=== PATIENT | male | born 1965 | race Caucasian/White ===

== ENCOUNTER 2016-11-17 13:31 | Emergency (ER) | payer MEDICARE, MEDICAID ==
[2016-11-17 14:00] VITALS: BP 128/85
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
== END 2016-11-17 15:00 | disposition home or self-care (01) ==
LOC: FB.ED 13:31
DX: M25.511 Pain in right shoulder (principal); G89.29 Other chronic pain; I10 Essential (primary) hypertension; M10.9 Gout, unspecified; F17.210 Nicotine dependence, cigarettes, uncomplicated
CPT/HCPCS: 73030-RT; 99282; 99283

== ENCOUNTER 2018-10-24 09:50 | Emergency (ER) | payer MEDICARE, MEDICAID ==
[2018-10-24] MEDS ORDERED: Ketamine 500 mg/10 ML MDV IV ONE (10:04)
[2018-10-24] MEDS ORDERED: Sodium Chloride 0.9% 1,000 ML IV ONE ×2 (10:06→11:10)
--- NOTE | 2018-10-24 10:18 | EDM.PDOC ---
ED HPI GENERAL MEDICAL PROBLEM - General Chief Complaint: Possible Sepsis Stated Complaint: SHAKING, PARINOID, Time Seen by Provider: 10/24/18 09:54 Source of Information: Reports: EMS (Is delirious unable understand speech and words are barely perceptible), Other History Limitations: Reports: No Limitations - History of Present Illness INITIAL COMMENTS - FREE TEXT/NARRATIVE: Patient is confused and disoriented 2 body feels warm has difficulty allowing us to put IV in place pushes us away and only oriented to self. He has slurred speech. Unshaven has bronzing of his body marked dry mucosa oral mucosa. He has known cirrhosis liver cancer and hepatitis C and hepatitis B chronic kidney disease hypertension chronic low back pain gout coronary artery disease COPD - Related Data Allergies Allergy/AdvReac Type Severity Reaction Status Date / Time No Known Allergies Allergy Verified 10/24/18 10:03 Home Meds: Home Meds Albuterol [Ventolin HFA] 2 puff PO Q6H PRN 10/28/14 [History] Allopurinol 150 mg PO DAILY 10/28/14 [History] Amitriptyline HCl 50 mg PO BEDTIME 10/28/14 [History] Tiotropium [Spiriva Handihaler] 1 puff INH DAILY 10/28/14 [History] B&C/FA/Zinc/Copper Oxide/Vit E [Stress B-Complex Tablet] 1 each PO 1700 [History] Magnesium Oxide [Magnesium] 400 mg PO BID 06/19/18 [History] Morphine Sulfate [Morphine Sulfate ER] 15 mg PO BID 06/19/18 [History] Multivitamin-Min/Iron/FA/Vit K [Multi-Day Plus Minerals Tablet] 1 each PO DAILY 06/19/18 [History] Theophylline [Theophylline Anhydrous] 300 mg PO DAILY 06/19/18 [History] oxyCODONE 5 mg PO Q4H PRN 06/19/18 [History] oxyCODONE 10 mg PO Q4H PRN 06/19/18 [History] Beclomethasone Dipropionate [Qvar] 7.3 gm IH BID #0 aer.w.adap 07/01/18 [Rx] Midodrine 5 mg PO DAILY PRN #30 tablet 07/01/18 [Rx] PARoxetine [Paxil] 30 mg PO DAILY #0 07/01/18 [Rx] Potassium Chloride [Klor-Con M20] 20 meq PO DAILY #30 tab.er 07/01/18 [Rx] Zolpidem Tartrate [Ambien] 10 mg PO BEDTIME PRN #0 tablet 07/01/18 [Rx] Past Medical History HEENT History: Reports: None Cardiovascular History: Reports: Hypertension Respiratory History: Reports: COPD Gastrointestinal History: Reports: Cirrhosis, Hepatitis, Other (See Below) Other Gastrointestinal History: liver ca Musculoskeletal History: Reports: Back Pain, Chronic, Gout Oncologic (Cancer) History: Reports: Liver - Infectious Disease History Infectious Disease History: Reports: C-Difficile, Hepatitis C - Past Surgical History HEENT Surgical History: Reports: Oral Surgery Other HEENT Surgeries/Procedures: lower partial in front GI Surgical History: Reports: Small Bowel Social & Family History - Family History Family Medical History: Noncontributory - Caffeine Use Caffeine Use: Reports: Coffee, Soda - Living Situation & Occupation Living situation: Reports: Single ED ROS GENERAL - Review of Systems Review Of Systems: Unable To Obtain ED EXAM, SEPSIS - Physical Exam Exam: See Below Text/Narrative:: Confused patient with slurred speech. Point to 1. Pushing staff way when they tried to place IVs. And [place]. Warm body to touch. No scleral icterus. Large abdomen. He doesn't complain of pain. Exam Limited By: Altered Mental Status General Appearance: Moderate Distress Eye Exam: Bilateral Eye: Normal Inspection (No scleral icterus) Ears: Normal External Exam, Normal Canal, Hearing Grossly Normal, Normal TMs Nose: Normal Inspection Throat/Mouth: Other (dry oropharynx. Poor dentition) Head: Atraumatic, Other (No hill sign) Neck: Normal Inspection, Supple, Non-Tender, Full Range of Motion, Other (No bruits no masses) Respiratory/Chest: No Respiratory Distress, No Accessory Muscle Use, Rales Cardiovascular: Normal Peripheral Pulses, Regular Rate, Rhythm, No Edema, No Gallop, No JVD, No Murmur, No Rub Peripheral Pulses: 1+: Carotid (L), Carotid (R), Brachial (L), Brachial (R), Radial (L), Radial (R), Femoral (L), Femoral (R) GI/Abdominal Exam: Normal Bowel Sounds, Soft, Non-Tender, No Organomegaly, No Abnormal Bruit, Other (Mildly distended abdomen has midline scar [place] to symphysis old healed nontender no hernia demonstrated bowel sounds are present. No masses palpable) (Male) Exam: No Hernia Rectal (Males) Exam: Normal Exam, Normal Rectal Tone, Prostate Normal Back: Normal Inspection, Other (No CVA tenderness) Extremities: Normal Inspection, No Pedal Edema, Normal Capillary Refill, Other ( [place] fingernails) Neurological: Memory Loss Remote Events, Memory Loss Recent Events, Other ( Slurred speech absent deep tendon reflexes) Psychiatric: Other (Delirious A cooperative) Skin: Warm, Dry, Intact, Normal Color, No Rash EKG INTERPRETATION EKG Date: 10/24/18 Course - Orders/Labs/Meds Orders: Active Orders 24 hr Category Date Time Status CXR [Chest 1V Frontal] [CR] Stat Exams 10/24/18 10:07 Taken CULTURE BLOOD [BC] Urgent Lab 10/24/18 10:25 Received CULTURE BLOOD [] Urgent Lab 10/24/18 10:35 Received CULTURE URINE [] Urgent Lab 10/24/18 10:35 Received INFLUENZA A+B AG SCREEN [] Stat Lab 10/24/18 10:37 Received STREP SCRN A RAPID W CULT CONF [] Urgent Lab 10/24/18 10:28 Received Ketamine [Ketalar] Med 10/24/18 10:35 Active 60 mg IV ONETIME NS + KCl 20mEq/L [Normal Saline with 20 mEq KCl] 1,000 Med 10/24/18 11:15 Active ml IV ASDIRECTED Piperacillin/Tazobactam [Zosyn] 4.5 gm Med 10/24/18 11:15 Active Sodium Chloride 0.9% [Normal Saline] 100 ml IV Q6H Sodium Chloride 0.9% [Normal Saline] 1,000 ml Med 10/24/18 11:10 Active IV .BOLUS Vancomycin 1 gm Med 10/24/18 12:00 Active Sodium Chloride 0.9% [Normal Saline] 250 ml IV Q12H Blood Culture x2 Reflex Set [OM.PC] Urgent Oth 10/24/18 10:12 Ordered EKG 12 Lead [EK] Routine Ther 10/24/18 10:08 Ordered Medication Orders Potassium Chloride/Sodium Chloride (Normal Saline With 20 Meq Kcl) 1,000 mls @ 500 mls/hr IV ASDIRECTED SHANTI Last Admin: 10/24/18 11:23 Dose: 500 mls/hr Sodium Chloride (Normal Saline) 1,000 mls @ 999 mls/hr IV .BOLUS ONE Stop: 10/24/18 12:10 Piperacillin Sod/Tazobactam (Sod 4.5 gm/ Sodium Chloride) 100 mls @ 200 mls/hr IV Q6H SHANTI Vancomycin HCl 1 gm/ Sodium (Chloride) 250 mls @ 167 mls/hr IV Q12H SHANTI Ketamine HCl (Ketalar) 60 mg IV ONETIME SHANTI Last Admin: 10/24/18 10:39 Dose: 60 mg Labs: Laboratory Tests 10/24/18 10/24/18 10/24/18 Range/Units 10:25 10:25 10:25 WBC 7.9 (4.5-12.0) X10-3/uL RBC 3.25 L (4.30-5.75) x10(6)uL Hgb 11.4 L (11.5-15.5) g/dL Hct 33.8 (30.0-51.3) % MCV 104.0 H (80-96) fL MCH 35.2 H (27.7-33.6) pg MCHC 33.8 (32.2-35.4) g/dL RDW 16.7 H (11.5-15.5) % Plt Count 175 (125-369) X10(3)uL MPV 8.9 (7.4-10.4) fL Neut % (Auto) 75.9 (46-82) % Lymph % (Auto) 14.3 (13-37) % Wilkin % (Auto) 7.2 (4-12) % Eos % (Auto) 2 (1.0-5.0) % Baso % (Auto) 0 (0-2) % Neut # (Auto) 6.0 (1.6-8.3) # Lymph # (Auto) 1.1 (0.6-5.0) # Wilkin # (Auto) 0.6 (0.0-1.3) # Eos # (Auto) 0.2 (0.0-0.8) # Baso # (Auto) 0.0 (0.0-0.2) # PT (8.7-11.1) INR (0.89-1.13) Sodium (135-145) mmol/L Potassium (3.5-5.3) mmol/L Chloride (100-110) mmol/L Carbon Dioxide (21-32) mmol/L BUN (7-18) mg/dL Creatinine (0.70-1.30) mg/dL Est Cr Clr Drug Dosing Estimated GFR (MDRD) (>60) BUN/Creatinine Ratio (9-20) Glucose (80-116) mg/dL POC Glucose (80-116) mg/dL Lactic Acid (0.4-2.2) mmol/L Calcium (8.6-10.2) mg/dL Total Bilirubin (0.1-1.3) mg/dL AST (5-25) IU/L ALT (12-36) U/L Alkaline Phosphatase (56-112) IU/L Troponin I 0.027 (<0.017-0.056) ng/mL NT-Pro-B Natriuret Pep 386 H (<=125) pg/mL Total Protein (6.0-8.0) g/dL Albumin (3.5-5.2) g/dL Globulin g/dL Albumin/Globulin Ratio Amylase (25-115) U/L Urine Color (YELLOW) Urine Appearance (CLEAR) Urine pH (5.0-6.5) Ur Specific [place] (1.010-1.025) Urine Protein (NEGATIVE) mg/dL Urine Glucose (UA) (NEGATIVE) mg/dL Urine Ketones (NEGATIVE) mg/dL Urine Occult Blood (NEGATIVE) Urine Nitrite (NEGATIVE) Urine Bilirubin (NEGATIVE) Urine Urobilinogen (NEGATIVE) mg/dL Ur Leukocyte Esterase (NEGATIVE) Urine RBC (0) Urine WBC (0) Ur Squamous Epith Cells (NS,R,O) Urine Bacteria (NS) Salicylates (2.8-20.0) mg/dL Urine Opiates Screen (NEGATIVE) Ur Oxycodone Screen (NEGATIVE) Ur Propoxyphene Screen (NEGATIVE) Acetaminophen (10-30) ug/mL Ur Barbituates Screen (NEGATIVE) Ur Tricyclics Screen (NEGATIVE) Ur Phencyclidine Scrn (NEGATIVE) Ur Amphetamine Screen (NEGATIVE) Urine MDMA Screen (NEGATIVE) U Benzodiazepines Scrn (NEGATIVE) U Cocaine Metab Screen (NEGATIVE) U Marijuana (THC) Screen (NEGATIVE) Ethyl Alcohol < 0.03 (<0.03) % 10/24/18 10/24/18 10/24/18 Range/Units 10:25 10:25 10:25 WBC (4.5-12.0) X10-3/uL RBC (4.30-5.75) x10(6)uL Hgb (11.5-15.5) g/dL Hct (30.0-51.3) % MCV (80-96) fL MCH (27.7-33.6) pg MCHC (32.2-35.4) g/dL RDW (11.5-15.5) % Plt Count (125-369) X10(3)uL MPV (7.4-10.4) fL Neut % (Auto) (46-82) % Lymph % (Auto) (13-37) % Wilkin % (Auto) (4-12) % Eos % (Auto) (1.0-5.0) % Baso % (Auto) (0-2) % Neut # (Auto) (1.6-8.3) # Lymph # (Auto) (0.6-5.0) # Wilkin # (Auto) (0.0-1.3) # Eos # (Auto) (0.0-0.8) # Baso # (Auto) (0.0-0.2) # PT 12.5 H (8.7-11.1) INR 1.29 H (0.89-1.13) Sodium 142 (135-145) mmol/L Potassium 2.8 L* D (3.5-5.3) mmol/L Chloride 110 (100-110) mmol/L Carbon Dioxide 19 L (21-32) mmol/L BUN 4 L (7-18) mg/dL Creatinine 0.7 (0.70-1.30) mg/dL Est Cr Clr Drug Dosing TNP Estimated GFR (MDRD) > 60 (>60) BUN/Creatinine Ratio 5.7 L (9-20) Glucose 77 L (80-116) mg/dL POC Glucose (80-116) mg/dL Lactic Acid 1.0 (0.4-2.2) mmol/L Calcium 7.9 L (8.6-10.2) mg/dL Total Bilirubin 1.0 (0.1-1.3) mg/dL AST 54 H D (5-25) IU/L ALT 52 H D (12-36) U/L Alkaline Phosphatase 116 H (56-112) IU/L Troponin I (<0.017-0.056) ng/mL NT-Pro-B Natriuret Pep (<=125) pg/mL Total Protein 7.3 (6.0-8.0) g/dL Albumin 2.4 L (3.5-5.2) g/dL Globulin 4.9 g/dL Albumin/Globulin Ratio 0.5 Amylase 47 (25-115) U/L Urine Color (YELLOW) Urine Appearance (CLEAR) Urine pH (5.0-6.5) Ur Specific [place] (1.010-1.025) Urine Protein (NEGATIVE) mg/dL Urine Glucose (UA) (NEGATIVE) mg/dL Urine Ketones (NEGATIVE) mg/dL Urine Occult Blood (NEGATIVE) Urine Nitrite (NEGATIVE) Urine Bilirubin (NEGATIVE) Urine Urobilinogen (NEGATIVE) mg/dL Ur Leukocyte Esterase (NEGATIVE) Urine RBC (0) Urine WBC (0) Ur Squamous Epith Cells (NS,R,O) Urine Bacteria (NS) Salicylates < 2.0 L (2.8-20.0) mg/dL Urine Opiates Screen (NEGATIVE) Ur Oxycodone Screen (NEGATIVE) Ur Propoxyphene Screen (NEGATIVE) Acetaminophen < 2 L (10-30) ug/mL Ur Barbituates Screen (NEGATIVE) Ur Tricyclics Screen (NEGATIVE) Ur Phencyclidine Scrn (NEGATIVE) Ur Amphetamine Screen (NEGATIVE) Urine MDMA Screen (NEGATIVE) U Benzodiazepines Scrn (NEGATIVE) U Cocaine Metab Screen (NEGATIVE) U Marijuana (THC) Screen (NEGATIVE) Ethyl Alcohol (<0.03) % 10/24/18 10/24/18 10/24/18 Range/Units 10:35 10:35 11:11 WBC (4.5-12.0) X10-3/uL RBC (4.30-5.75) x10(6)uL Hgb (11.5-15.5) g/dL Hct (30.0-51.3) % MCV (80-96) fL MCH (27.7-33.6) pg MCHC (32.2-35.4) g/dL RDW (11.5-15.5) % Plt Count (125-369) X10(3)uL MPV (7.4-10.4) fL Neut % (Auto) (46-82) % Lymph % (Auto) (13-37) % [place] % (Auto) (4-12) % Eos % (Auto) (1.0-5.0) % Baso % (Auto) (0-2) % Neut # (Auto) (1.6-8.3) # Lymph # (Auto) (0.6-5.0) # [place]kin # (Auto) (0.0-1.3) # Eos # (Auto) (0.0-0.8) # Baso # (Auto) (0.0-0.2) # PT (8.7-11.1) INR (0.89-1.13) Sodium (135-145) mmol/L Potassium (3.5-5.3) mmol/L Chloride (100-110) mmol/L Carbon Dioxide (21-32) mmol/L BUN (7-18) mg/dL Creatinine (0.70-1.30) mg/dL Est Cr Clr Drug Dosing Estimated GFR (MDRD) (>60) BUN/Creatinine Ratio (9-20) Glucose (80-116) mg/dL POC Glucose 72 L (80-116) mg/dL Lactic Acid (0.4-2.2) mmol/L Calcium (8.6-10.2) mg/dL Total Bilirubin (0.1-1.3) mg/dL AST (5-25) IU/L ALT (12-36) U/L Alkaline Phosphatase (56-112) IU/L Troponin I (<0.017-0.056) ng/mL NT-Pro-B Natriuret Pep (<=125) pg/mL Total Protein (6.0-8.0) g/dL Albumin (3.5-5.2) g/dL Globulin g/dL Albumin/Globulin Ratio Amylase (25-115) U/L Urine Color Yellow (YELLOW) Urine Appearance Slightly cloudy (CLEAR) Urine pH 6.0 (5.0-6.5) Ur Specific [place] 1.010 (1.010-1.025) Urine Protein Negative (NEGATIVE) mg/dL Urine Glucose (UA) Normal (NEGATIVE) mg/dL Urine Ketones Negative (NEGATIVE) mg/dL Urine Occult Blood Moderate H (NEGATIVE) Urine Nitrite Negative (NEGATIVE) Urine Bilirubin Negative (NEGATIVE) Urine Urobilinogen Normal (NEGATIVE) mg/dL Ur Leukocyte Esterase Negative (NEGATIVE) Urine RBC 0-5 (0) Urine WBC 0-5 (0) Ur Squamous Epith Cells Few H (NS,R,O) Urine Bacteria Few H (NS) Salicylates (2.8-20.0) mg/dL Urine Opiates Screen Negative (NEGATIVE) Ur Oxycodone Screen Negative (NEGATIVE) Ur Propoxyphene Screen Negative (NEGATIVE) Acetaminophen (10-30) ug/mL Ur Barbituates Screen Negative (NEGATIVE) Ur Tricyclics Screen Positive H (NEGATIVE) Ur Phencyclidine Scrn Negative (NEGATIVE) Ur Amphetamine Screen Negative (NEGATIVE) Urine MDMA Screen Negative (NEGATIVE) U Benzodiazepines Scrn Negative (NEGATIVE) U Cocaine Metab Screen Negative (NEGATIVE) U Marijuana (THC) Screen Negative (NEGATIVE) Ethyl Alcohol (<0.03) % Meds: Medications Generic Name Dose Route Start Last Admin Trade Name Freq PRN Reason Stop Dose Admin Potassium Chloride/Sodium Chloride 1,000 mls @ 500 mls/hr 10/24/18 11:15 11:23 Normal Saline With 20 Meq Kcl IV 500 mls/hr ASDIRECTED SHANTI Administration Sodium Chloride 1,000 mls @ 999 mls/hr 10/24/18 11:10 Normal Saline IV 10/24/18 12:10 .BOLUS ONE Piperacillin Sod/Tazobactam 100 mls @ 200 mls/hr 10/24/18 11:15 Sod 4.5 gm/ Sodium Chloride IV Q6H SHANTI Vancomycin HCl 1 gm/ Sodium 250 mls @ 167 mls/hr 10/24/18 12:00 Chloride IV Q12H SHANTI Ketamine HCl 60 mg 10/24/18 10:35 10/24/18 10:39 Ketalar IV 60 mg ONETIME SHANTI Administration Discontinued Medications Generic Name Dose Route Start Last Admin Trade Name Freq PRN Reason Stop Dose Admin Dextrose/Water 50 ml 10/24/18 11:13 10/24/18 11:19 Dextrose 50% In Water IVPUSH 10/24/18 11:14 50 ml ONETIME ONE Administration Sodium Chloride 1,000 mls @ 999 mls/hr 10/24/18 10:06 10/24/18 10:15 Normal Saline IV 10/24/18 11:06 999 mls/hr .BOLUS ONE Administration Ketamine HCl 40 mg 10/24/18 10:04 10/24/18 10:16 Ketalar IV 10/24/18 10:05 40 mg ONETIME ONE Administration Lorazepam 2 mg 10/24/18 11:08 10/24/18 11:12 Ativan IVPUSH 10/24/18 11:09 2 mg ONETIME ONE Administration Lorazepam 2 mg 10/24/18 11:34 10/24/18 11:41 Ativan IVPUSH 10/24/18 11:35 2 mg ONETIME ONE Administration Olanzapine 5 mg 10/24/18 11:23 10/24/18 11:27 Zyprexa IM 10/24/18 11:24 5 mg ONETIME ONE Administration Departure - Departure Time of Disposition: 11:00 (PARONOID patient in delusion. Early sepsis. Confused. Documented hepatitis C hepatitis B pneumonia on x-ray,liver cancer has ascites ammonia pending test to be sent out alkalemia mild liver enzyme elevation ectocardia dehydrated lactate 1.0. TRansfer arranged with Dr Callum Whatley [phone]) Disposition: DC/Tfer to [facility] 02 Clinical Impression: Pneumonia Qualifiers: Pneumonia type: due to unspecified organism Laterality: left Lung location: unspecified part of lung Qualified Code(s): J18.9 - Pneumonia, unspecified organism - Discharge Information Referrals: PCP,Unknown [Primary Care Provider] - Forms: ED Department Discharge - My Orders Last 24 Hours: My Active Orders 10/24/18 10:07 CXR [Chest 1V Frontal] [CR] Stat 10/24/18 10:08 EKG 12 Lead [EK] Routine 10/24/18 10:12 Blood Culture x2 Reflex Set [OM.PC] Urgent 10/24/18 10:25 CULTURE BLOOD [BC] Urgent 10/24/18 10:28 STREP SCRN A RAPID W CULT CONF [RM] Urgent 10/24/18 10:35 CULTURE BLOOD [BC] Urgent CULTURE URINE [RM] Urgent Ketamine [Ketalar] 60 mg IV ONETIME 10/24/18 10:37 INFLUENZA A+B AG SCREEN [RM] Stat 10/24/18 11:10 Sodium Chloride 0.9% [Normal Saline] 1,000 ml IV .BOLUS 10/24/18 11:15 NS + KCl 20mEq/L [Normal Saline with 20 mEq KCl] 1,000 ml IV ASDIRECTED Piperacillin/Tazobactam [Zosyn] 4.5 gm Sodium Chloride 0.9% [Normal Saline] 100 ml IV Q6H 10/24/18 12:00 Vancomycin 1 gm Sodium Chloride 0.9% [Normal Saline] 250 ml IV Q12H - Assessment/Plan Last 24 Hours: My Active Orders 10/24/18 10:07 CXR [Chest 1V Frontal] [CR] Stat 10/24/18 10:08 EKG 12 Lead [EK] Routine 10/24/18 10:12 Blood Culture x2 Reflex Set [OM.PC] Urgent 10/24/18 10:25 CULTURE BLOOD [BC] Urgent 10/24/18 10:28 STREP SCRN A RAPID W CULT CONF [RM] Urgent 10/24/18 10:35 CULTURE BLOOD [BC] Urgent CULTURE URINE [RM] Urgent Ketamine [Ketalar] 60 mg IV ONETIME 10/24/18 10:37 INFLUENZA A+B AG SCREEN [RM] Stat 10/24/18 11:10 Sodium Chloride 0.9% [Normal Saline] 1,000 ml IV .BOLUS 10/24/18 11:15 NS + KCl 20mEq/L [Normal Saline with 20 mEq KCl] 1,000 ml IV ASDIRECTED Piperacillin/Tazobactam [Zosyn] 4.5 gm Sodium Chloride 0.9% [Normal Saline] 100 ml IV Q6H 10/24/18 12:00 Vancomycin 1 gm Sodium Chloride 0.9% [Normal Saline] 250 ml IV Q12H
[2018-10-24] MEDS ORDERED: Ketamine 500 mg/10 ML MDV IV SCH (10:35)
[2018-10-24] MEDS ORDERED: LORazepam 2 MG/ML SDV IVPUSH ONE ×2 (11:08→11:34)
[2018-10-24] MEDS ORDERED: 50% Dextrose in Water 50 ML Syringe IVPUSH ONE (11:13)
[2018-10-24] MEDS ORDERED: Piperacillin/Tazobactam 4.5 GM in Sodium Chloride 0.9% 100 ML IV SCH (11:15)
[2018-10-24] MEDS ORDERED: NS + KCl 20mEq/L 1,000 ML IV SCH (11:15)
[2018-10-24] MEDS ORDERED: OLANZapine 10 MG Vial IM ONE (11:23)
[2018-10-24 11:38] LABS: ACETAMINOPHEN < 2 ug/mL (10-30)
[2018-10-24 14:16] VITALS: BP 130/86
== END 2018-10-24 12:45 ==
LOC: FB.ED 09:50
DX: J18.9 Pneumonia, unspecified organism (principal); J02.0 Streptococcal pharyngitis
CPT/HCPCS: 36415; 71045; 80053; 80305; 81001; 82150; 82962; 83605; 83880; 84484; 85025; 85610; 87040; 87086; 87804; 87880; 93005; 96361; 96365; 96372; 96374; 96375; 99285; G0480; J2060; J2543; J3370; J3480; J7030; J7050; S0166

== ENCOUNTER 2019-06-24 14:37 | Emergency (ER) | payer MEDICARE, MEDICAID ==
[2019-06-24] MEDS ORDERED: Sodium Chloride 0.9% 10 ML Syringe FLUSH PRN ×2 (14:44)
[2019-06-24] MEDS ORDERED: Lactated Ringers 1,000 ML IV SCH (14:45)
--- NOTE | 2019-06-24 14:47 | EDM.PDOC ---
ED HPI GENERAL MEDICAL PROBLEM - General Chief Complaint: Genitourinary Problem Stated Complaint: ABDOMINAL PAIN Time Seen by Provider: 06/24/19 14:40 Source of Information: Reports: Patient History Limitations: Reports: No Limitations - History of Present Illness INITIAL COMMENTS - FREE TEXT/NARRATIVE: states he has not been able to urinate for the past 10 hrs has lower abd pain , pressure in the suprapubic region has Ca of the liver , awaiting further treatment , had MRI done one month ago on seroquel and Klonipin and morphine 100mg daily Onset: Gradual Duration: Day(s): (10), Getting Worse Location: Reports: Abdomen, Pelvis Quality: Reports: Ache, Dull, Pressure, Same as Previous Episode (noted about one year ago before cancer diagnosis) Severity: Severe Improves with: Reports: Heat Therapy Worsens with: Reports: Movement Associated Symptoms: Reports: Cough, Diaphoresis, Fever/Chills, Loss of Appetite , Malaise, Shortness of Breath, Weakness Lower Abdomen Pain Score (Numeric/FACES): 10 - Related Data Allergies Allergy/AdvReac Type Severity Reaction Status Date / Time No Known Allergies Allergy Verified 10/24/18 10:03 Home Meds: Home Meds Albuterol [Ventolin HFA] 2 puff PO Q6H PRN 10/28/14 [History] Allopurinol 150 mg PO DAILY 10/28/14 [History] Amitriptyline HCl 50 mg PO BEDTIME 10/28/14 [History] Tiotropium [Spiriva Handihaler] 1 puff INH DAILY 10/28/14 [History] B&C/FA/Zinc/Copper Oxide/Vit E [Stress B-Complex Tablet] 1 each PO 1700 [History] Magnesium Oxide [Magnesium] 400 mg PO BID 06/19/18 [History] Morphine Sulfate [Morphine Sulfate ER] 15 mg PO BID 06/19/18 [History] Multivitamin-Min/Iron/FA/Vit K [Multi-Day Plus Minerals Tablet] 1 each PO DAILY 06/19/18 [History] Theophylline [Theophylline Anhydrous] 300 mg PO DAILY 06/19/18 [History] oxyCODONE 5 mg PO Q4H PRN 06/19/18 [History] oxyCODONE 10 mg PO Q4H PRN 06/19/18 [History] Beclomethasone Dipropionate [Qvar] 7.3 gm IH BID #0 aer.w.adap 07/01/18 [Rx] Midodrine 5 mg PO DAILY PRN #30 tablet 07/01/18 [Rx] PARoxetine [Paxil] 30 mg PO DAILY #0 07/01/18 [Rx] Potassium Chloride [Klor-Con M20] 20 meq PO DAILY #30 tab.er 07/01/18 [Rx] Zolpidem Tartrate [Ambien] 10 mg PO BEDTIME PRN #0 tablet 07/01/18 [Rx] Past Medical History HEENT History: Reports: None Cardiovascular History: Reports: Hypertension Respiratory History: Reports: COPD Gastrointestinal History: Reports: Cirrhosis, Hepatitis, Other (See Below) Other Gastrointestinal History: liver ca Musculoskeletal History: Reports: Back Pain, Chronic, Gout Psychiatric History: Reports: Other (See Below) Other Psychiatric History: unable to get this information as of this time. Oncologic (Cancer) History: Reports: Liver - Infectious Disease History Infectious Disease History: Reports: C-Difficile, Hepatitis C - Past Surgical History HEENT Surgical History: Reports: Oral Surgery Other HEENT Surgeries/Procedures: lower partial in front GI Surgical History: Reports: Small Bowel Social & Family History - Family History Family Medical History: Noncontributory - Caffeine Use Caffeine Use: Reports: Coffee, Soda Caffeine Use Comment: unable to get this information as of this time. - Living Situation & Occupation Living situation: Reports: Single ED ROS GENERAL - Review of Systems Review Of Systems: See Below Constitutional: Reports: Fever, Chills, Malaise, Weakness, Fatigue, Night Sweats , Decreased Appetite HEENT: Reports: No Symptoms Respiratory: Reports: Shortness of Breath, Wheezing, Cough, Sputum. Denies: Hemoptysis Cardiovascular: Reports: No Symptoms Endocrine: Reports: No Symptoms, Fatigue GI/Abdominal: Reports: Decreased Appetite : Reports: Urinary Retention (with pain in the suprapubic region ) Skin: Reports: No Symptoms Neurological: Reports: Dizziness. Denies: Confusion Psychiatric: Reports: No Symptoms. Denies: Confusion Hematologic/Lymphatic: Reports: No Symptoms ED EXAM, RENAL/ - Physical Exam Exam: See Below Text/Narrative:: pt on arrival was shivering , very cold , coughing in addition to suprapubic pain , states he has COPD and is on INhalers and still smoking E-cig found on him , denies he uses it , and denied vaping did discuss need to transfer him to [place] if he was vaping : he denies and does not want to go to [place]: declined to go admits to still smoking and having no intention of quitting Exam Limited By: No Limitations General Appearance: Alert, No Apparent Distress, Mild Distress, Cachetic Eye Exam: Bilateral Eye: EOMI Ears: Normal External Exam Nose: Normal Inspection Throat/Mouth: Normal Inspection Head: Atraumatic Neck: Supple, Non-Tender, Full Range of Motion Respiratory/Chest: Decreased Breath Sounds, Rales, Wheezing Cardiovascular: Normal Peripheral Pulses, Regular Rate, Rhythm GI/Abdominal: Soft, Non-Tender Back Exam: Normal Inspection, Full Range of Motion Extremities: Normal Range of Motion Neurological: Alert, Oriented, CN II-XII Intact, Normal Cognition Psychiatric: Normal Affect Skin Exam: Warm Course - Vital Signs Text/Narrative:: Labs don e Moreno catheter placed 1450 cc of urine obtained, Moreno left in place to assess urinary output has had same in the past : states also had over night moreno: not sure of diagnosis at the time then noted to have sob, chill s: wheezing given Neb, steroid and rocephin blood culture drawn plan made to have CT chest ( pt has CA of the liver ) still smoking , fever , chill s, will assess for Pneumonia influenza had influenza vaccine yesterday CT chest , abd and pelvis ordered , awaiting report Last Recorded V/S: Last Vital Signs Temp 36.6 C 06/24/19 15:00 Pulse 99 06/24/19 15:00 Resp 18 06/24/19 15:00 BP 140/88 06/24/19 15:00 Pulse Ox 95 06/24/19 15:38 - Orders/Labs/Meds Orders: Active Orders 24 hr Category Date Time Status Moreno Catheter Insertion [Insert Urinary Catheter] [OM. Care 06/24/19 15:00 Ordered PC] Q24H RT Aerosol Therapy [RC] ASDIRECTED Care 06/24/19 15:19 Active Urinary Catheter Assessment [RC] QSHIFT Care 06/24/19 14:44 Active Urinary Catheter Assessment [RC] QSHIFT Care 06/24/19 14:47 Active Chest Abdomen Pelvis w Cont [CT] Stat Exams 06/24/19 15:17 Taken CULTURE BLOOD [BC] Urgent Lab 06/24/19 15:30 Received CULTURE BLOOD [BC] Urgent Lab 06/24/19 15:41 Received CULTURE URINE [RM] Stat Lab 06/24/19 15:06 Received Lactated Ringers [Ringers, Lactated] 1,000 ml Med 06/24/19 14:45 Active IV .BOLUS Sodium Chloride 0.9% [Saline Flush] Med 06/24/19 14:44 Active 10 ml FLUSH ASDIRECTED PRN Sodium Chloride 0.9% [Saline Flush] Med 06/24/19 14:44 Active 10 ml FLUSH ASDIRECTED PRN methylPREDNISolone Sod Succ [Solu-MEDROL] Med 06/24/19 15:30 Active 125 mg IVPUSH DAILY Blood Culture x2 Reflex Set [OM.PC] Urgent Oth 06/24/19 15:20 Ordered Peripheral IV Insertion Adult [OM.PC] Urgent Oth 06/24/19 14:44 Ordered Medication Orders Lactated Ringer's (Ringers, Lactated) 1,000 mls @ 999 mls/hr IV .BOLUS SHANTI Last Admin: 06/24/19 15:06 Dose: 999 mls/hr Methylprednisolone Sodium Succinate (Solu-Medrol) 125 mg IVPUSH DAILY SHANTI Last Admin: 06/24/19 15:38 Dose: 125 mg Sodium Chloride (Saline Flush) 10 ml FLUSH ASDIRECTED PRN PRN Reason: Keep Vein Open Last Admin: 06/24/19 15:06 Dose: 10 ml Sodium Chloride (Saline Flush) 10 ml FLUSH ASDIRECTED PRN PRN Reason: Keep Vein Open Labs: Laboratory Tests 06/24/19 06/24/19 06/24/19 Range/Units 14:54 14:54 14:54 WBC 12.5 H (4.5-12.0) X10-3/uL RBC 4.73 (4.30-5.75) x10(6)uL Hgb 16.8 (13.5-17.8) g/dL Hct 49.7 D (30.0-51.3) % MCV 105.0 H (80-96) fL MCH 35.5 H (27.7-33.6) pg MCHC 33.8 (32.2-35.4) g/dL RDW 15.7 H (11.5-15.5) % Plt Count 255 (125-369) X10(3)uL MPV 8.2 (7.4-10.4) fL Neut % (Auto) 78.7 (46-82) % Lymph % (Auto) 14.4 (13-37) % Cook % (Auto) 5.1 (4-12) % Eos % (Auto) 1 (1.0-5.0) % Baso % (Auto) 1 (0-2) % Neut # (Auto) 9.9 H (1.6-8.3) # Lymph # (Auto) 1.8 (0.6-5.0) # Cook # (Auto) 0.6 (0.0-1.3) # Eos # (Auto) 0.1 (0.0-0.8) # Baso # (Auto) 0.1 (0.0-0.2) # PT 11.6 H (8.7-11.1) INR 1.20 H (0.89-1.13) ABG pH (7.35-7.45) ABG pCO2 (35-45) mmHg ABG pO2 (83-108) mmHg ABG HCO3 (22-26) mmol/L ABG O2 Saturation (96-97) % ABG Base Excess (-2-2) Cuco Test O2 Delivery Device Sodium 143 (135-145) mmol/L Potassium 3.4 L (3.5-5.3) mmol/L Chloride 109 (100-110) mmol/L Carbon Dioxide 19 L (21-32) mmol/L BUN 9 (7-18) mg/dL Creatinine 0.7 (0.70-1.30) mg/dL Est Cr Clr Drug Dosing TNP Estimated GFR (MDRD) > 60 (>60) BUN/Creatinine Ratio 12.9 (9-20) Glucose 143 H (80-116) mg/dL Lactic Acid (0.4-2.2) mmol/L Calcium 7.8 L (8.6-10.2) mg/dL Total Bilirubin 0.7 (0.1-1.3) mg/dL AST 59 H (5-25) IU/L ALT 61 H D (12-36) U/L Alkaline Phosphatase 218 H (56-112) IU/L C-Reactive Protein (0.5-0.9) mg/dL Total Protein 9.0 H (6.0-8.0) g/dL Albumin 3.6 (3.5-5.2) g/dL Globulin 5.4 g/dL Albumin/Globulin Ratio 0.7 Urine Color (YELLOW) Urine Appearance (CLEAR) Urine pH (5.0-6.5) Ur Specific [place] (1.010-1.025) Urine Protein (NEGATIVE) mg/dL Urine Glucose (UA) (NORMAL) mg/dL Urine Ketones (NEGATIVE) mg/dL Urine Occult Blood (NEGATIVE) Urine Nitrite (NEGATIVE) Urine Bilirubin (NEGATIVE) Urine Urobilinogen (NEGATIVE) mg/dL Ur Leukocyte Esterase (NEGATIVE) Urine RBC (0-5) Urine WBC (0-5) Ur Squamous Epith Cells (NS,R,O) Urine Bacteria (NS) 06/24/19 06/24/19 06/24/19 Range/Units 15:00 15:06 15:30 WBC (4.5-12.0) X10-3/uL RBC (4.30-5.75) x10(6)uL Hgb (13.5-17.8) g/dL Hct (30.0-51.3) % MCV (80-96) fL MCH (27.7-33.6) pg MCHC (32.2-35.4) g/dL RDW (11.5-15.5) % Plt Count (125-369) X10(3)uL MPV (7.4-10.4) fL Neut % (Auto) (46-82) % Lymph % (Auto) (13-37) % Cook % (Auto) (4-12) % Eos % (Auto) (1.0-5.0) % Baso % (Auto) (0-2) % Neut # (Auto) (1.6-8.3) # Lymph # (Auto) (0.6-5.0) # Cook # (Auto) (0.0-1.3) # Eos # (Auto) (0.0-0.8) # Baso # (Auto) (0.0-0.2) # PT (8.7-11.1) INR (0.89-1.13) ABG pH (7.35-7.45) ABG pCO2 (35-45) mmHg ABG pO2 (83-108) mmHg ABG HCO3 (22-26) mmol/L ABG O2 Saturation (96-97) % ABG Base Excess (-2-2) Cuco Test O2 Delivery Device Sodium (135-145) mmol/L Potassium (3.5-5.3) mmol/L Chloride (100-110) mmol/L Carbon Dioxide (21-32) mmol/L BUN (7-18) mg/dL Creatinine (0.70-1.30) mg/dL Est Cr Clr Drug Dosing Estimated GFR (MDRD) (>60) BUN/Creatinine Ratio (9-20) Glucose (80-116) mg/dL Lactic Acid 3.5 H (0.4-2.2) mmol/L Calcium (8.6-10.2) mg/dL Total Bilirubin (0.1-1.3) mg/dL AST (5-25) IU/L ALT (12-36) U/L Alkaline Phosphatase (56-112) IU/L C-Reactive Protein 0.2 L (0.5-0.9) mg/dL Total Protein (6.0-8.0) g/dL Albumin (3.5-5.2) g/dL Globulin g/dL Albumin/Globulin Ratio Urine Color Yellow (YELLOW) Urine Appearance Slightly cloudy (CLEAR) Urine pH 5.0 (5.0-6.5) Ur Specific [place] 1.015 (1.010-1.025) Urine Protein Negative (NEGATIVE) mg/dL Urine Glucose (UA) Normal (NORMAL) mg/dL Urine Ketones Negative (NEGATIVE) mg/dL Urine Occult Blood Large H (NEGATIVE) Urine Nitrite Negative (NEGATIVE) Urine Bilirubin Negative (NEGATIVE) Urine Urobilinogen Normal (NEGATIVE) mg/dL Ur Leukocyte Esterase Moderate H (NEGATIVE) Urine RBC 40-50 H (0-5) Urine WBC 20-30 H (0-5) Ur Squamous Epith Cells Few H (NS,R,O) Urine Bacteria Many H (NS) 06/24/19 Range/Units 15:47 WBC (4.5-12.0) X10-3/uL RBC (4.30-5.75) x10(6)uL Hgb (13.5-17.8) g/dL Hct (30.0-51.3) % MCV (80-96) fL MCH (27.7-33.6) pg MCHC (32.2-35.4) g/dL RDW (11.5-15.5) % Plt Count (125-369) X10(3)uL MPV (7.4-10.4) fL Neut % (Auto) (46-82) % Lymph % (Auto) (13-37) % Cook % (Auto) (4-12) % Eos % (Auto) (1.0-5.0) % Baso % (Auto) (0-2) % Neut # (Auto) (1.6-8.3) # Lymph # (Auto) (0.6-5.0) # Cook # (Auto) (0.0-1.3) # Eos # (Auto) (0.0-0.8) # Baso # (Auto) (0.0-0.2) # PT (8.7-11.1) INR (0.89-1.13) ABG pH 7.36 (7.35-7.45) ABG pCO2 29 L (35-45) mmHg ABG pO2 80 L (83-108) mmHg ABG HCO3 16 L (22-26) mmol/L ABG O2 Saturation 96 (96-97) % ABG Base Excess -7.2 L (-2-2) Ucco Test Passed O2 Delivery Device Room air Sodium (135-145) mmol/L Potassium (3.5-5.3) mmol/L Chloride (100-110) mmol/L Carbon Dioxide (21-32) mmol/L BUN (7-18) mg/dL Creatinine (0.70-1.30) mg/dL Est Cr Clr Drug Dosing Estimated GFR (MDRD) (>60) BUN/Creatinine Ratio (9-20) Glucose (80-116) mg/dL Lactic Acid (0.4-2.2) mmol/L Calcium (8.6-10.2) mg/dL Total Bilirubin (0.1-1.3) mg/dL AST (5-25) IU/L ALT (12-36) U/L Alkaline Phosphatase (56-112) IU/L C-Reactive Protein (0.5-0.9) mg/dL Total Protein (6.0-8.0) g/dL Albumin (3.5-5.2) g/dL Globulin g/dL Albumin/Globulin Ratio Urine Color (YELLOW) Urine Appearance (CLEAR) Urine pH (5.0-6.5) Ur Specific [place] (1.010-1.025) Urine Protein (NEGATIVE) mg/dL Urine Glucose (UA) (NORMAL) mg/dL Urine Ketones (NEGATIVE) mg/dL Urine Occult Blood (NEGATIVE) Urine Nitrite (NEGATIVE) Urine Bilirubin (NEGATIVE) Urine Urobilinogen (NEGATIVE) mg/dL Ur Leukocyte Esterase (NEGATIVE) Urine RBC (0-5) Urine WBC (0-5) Ur Squamous Epith Cells (NS,R,O) Urine Bacteria (NS) Meds: Medications Generic Name Dose Route Start Last Admin Trade Name Freq PRN Reason Stop Dose Admin Lactated Ringer's 1,000 mls @ 999 mls/hr 06/24/19 14:45 06/24/19 15:06 Ringers, Lactated IV 999 mls/hr .BOLUS SHANTI Administration Methylprednisolone Sodium Succinate 125 mg 06/24/19 15:30 06/24/19 15:38 Solu-Medrol IVPUSH 125 mg DAILY SHANTI Administration Sodium Chloride 10 ml 06/24/19 14:44 06/24/19 15:06 Saline Flush FLUSH 10 ml ASDIRECTED PRN Administration Keep Vein Open Sodium Chloride 10 ml 06/24/19 14:44 Saline Flush FLUSH ASDIRECTED PRN Keep Vein Open Discontinued Medications Generic Name Dose Route Start Last Admin Trade Name Claudio PRN Reason Stop Dose Admin Albuterol/Ipratropium 3 ml 06/24/19 15:19 06/24/19 15:38 Duoneb 3.0-0.5 Mg/3 Ml NEB 06/24/19 15:20 3 ml ONETIME ONE Administration Ceftriaxone Sodium 1 gm/ 50 mls @ 200 mls/hr 06/24/19 16:34 06/24/19 16:41 Sodium Chloride IV 06/24/19 16:48 200 mls/hr ONETIME ONE Administration Iopamidol 100 ml 06/24/19 15:56 06/24/19 16:42 Isovue-370 (76%) IV 06/24/19 15:57 93 ml . DIRECTED ONE Administration Morphine Sulfate 4 mg 06/24/19 15:21 06/24/19 15:38 Morphine IVPUSH 06/24/19 15:22 4 mg ONETIME ONE Administration Departure - Departure Time of Disposition: 17:24 Disposition: DC/Tfer to [facility] Clinical Impression: UTI, Urinary tract infectious disease - Discharge Information *PRESCRIPTION DRUG MONITORING PROGRAM REVIEWED*: Not Applicable *COPY OF PRESCRIPTION DRUG MONITORING REPORT IN PATIENT [place]: Not Applicable Referrals: Dion Pineda MD [Primary Care Provider] - Forms: ED Department Discharge - Problem List & Annotations (1) Acute urinary retention SNOMED Code(s): 208144579 Code(s): R33.8 - OTHER RETENTION OF URINE Status: Acute Current Visit: Yes (2) COPD with acute exacerbation SNOMED Code(s): 088626866 Code(s): J44.1 - CHRONIC OBSTRUCTIVE PULMONARY DISEASE W (ACUTE) EXACERBATION Status: Acute Current Visit: Yes (3) Fever SNOMED Code(s): 042748013 Code(s): R50.9 - FEVER, UNSPECIFIED Status: Acute Current Visit: Yes (4) UTI (urinary tract infection) SNOMED Code(s): 60740211 Code(s): N39.0 - URINARY TRACT INFECTION, SITE NOT SPECIFIED Status: Acute Current Visit: Yes - Problem List Review Problem List Initiated/Reviewed/Updated: Yes - My Orders Last 24 Hours: My Active Orders 06/24/19 14:44 Urinary Catheter Assessment [RC] QSHIFT Sodium Chloride 0.9% [Saline Flush] 10 ml FLUSH ASDIRECTED PRN Sodium Chloride 0.9% [Saline Flush] 10 ml FLUSH ASDIRECTED PRN Peripheral IV Insertion Adult [OM.PC] Urgent 06/24/19 14:45 Lactated Ringers [Ringers, Lactated] 1,000 ml IV .BOLUS 06/24/19 14:47 Urinary Catheter Assessment [RC] QSHIFT 06/24/19 15:00 Moreno Catheter Insertion [Insert Urinary Catheter] [OM.PC] Q24H 06/24/19 15:06 CULTURE URINE [RM] Stat 06/24/19 15:17 Chest Abdomen Pelvis w Cont [CT] Stat 06/24/19 15:19 RT Aerosol Therapy [RC] ASDIRECTED 06/24/19 15:20 Blood Culture x2 Reflex Set [OM.PC] Urgent 06/24/19 15:30 CULTURE BLOOD [BC] Urgent methylPREDNISolone Sod Succ [Solu-MEDROL] 125 mg IVPUSH DAILY 06/24/19 15:41 CULTURE BLOOD [BC] Urgent - Assessment/Plan Last 24 Hours: My Active Orders 06/24/19 14:44 Urinary Catheter Assessment [RC] QSHIFT Sodium Chloride 0.9% [Saline Flush] 10 ml FLUSH ASDIRECTED PRN Sodium Chloride 0.9% [Saline Flush] 10 ml FLUSH ASDIRECTED PRN Peripheral IV Insertion Adult [OM.PC] Urgent 06/24/19 14:45 Lactated Ringers [Ringers, Lactated] 1,000 ml IV .BOLUS 06/24/19 14:47 Urinary Catheter Assessment [RC] QSHIFT 06/24/19 15:00 Moreno Catheter Insertion [Insert Urinary Catheter] [OM.PC] Q24H 06/24/19 15:06 CULTURE URINE [RM] Stat 06/24/19 15:17 Chest Abdomen Pelvis w Cont [CT] Stat 06/24/19 15:19 RT Aerosol Therapy [RC] ASDIRECTED 06/24/19 15:20 Blood Culture x2 Reflex Set [OM.PC] Urgent 06/24/19 15:30 CULTURE BLOOD [BC] Urgent methylPREDNISolone Sod Succ [Solu-MEDROL] 125 mg IVPUSH DAILY 06/24/19 15:41 CULTURE BLOOD [BC] Urgent
[2019-06-24] MEDS ORDERED: Albuterol/Ipratropium 3.0-0.5 MG/3 ML Neb Soln NEB ONE (15:19)
[2019-06-24] MEDS ORDERED: methylPREDNISolone Sodium Succinate 125 MG/2 ML SDV IVPUSH SCH (15:30)
[2019-06-24] MEDS ORDERED: Iopamidol 755 Mg/ML 100 ML Bottle IV ONE (15:56)
[2019-06-24] MEDS ORDERED: cefTRIAXone 1 GM in Sodium Chloride 0.9% 50 ML IV ONE (16:34)
[2019-06-24] MEDS ORDERED: Potassium Chloride 20 MEQ Tab.ER PO ONE (17:21)
[2019-06-24 18:27] VITALS: BP 136/68; PULSE 97
--- NOTE | 2019-06-25 04:38 | ER ---
DATE SEEN: 06/24/2019 ADDENDUM: I saw this patient after Dr. Moreno. The patient had come in with urinary retention. His urine looks dirty and he has been given some Rocephin along with some pain medications. Dr. Moreno ordered a CT of the chest because he has COPD and has been using an E-cigarette as well. These results have come back and CT of the abdomen and pelvis look stable, even better in terms of effusion that he had previously. The patient feels much better. He has a Wang catheter and drained more than 2000 mL. Followup exam revealed blood pressure 133/57, pulse of 92, and temperature is 98.2. FINAL IMPRESSION: 1. Urinary retention, possibly due to benign prostatic hyperplasia. 2. Urinary tract infection. 3. Chronic obstructive pulmonary disease. 4. History of hepatocellular carcinoma. PLAN: To discharge him home on cephalexin 500 mg p.o. t.i.d. for 5 days and Flomax 0.4 mg every night. I recommended that he see me or any other physician on Friday to remove the Wang. Return to the ED with any worsening symptoms. /[id number] NANCI/ANALIA
--- NOTE | 2019-06-25 09:35 | CT ---
INDICATION: Cough, fever, vaping history, shortness of breath, COPD, 40-year smoker, history of liver CA with chemoembolization. CT CHEST, ABDOMEN, AND PELVIS WITH CONTRAST: Spiral 3.75 mm axial sections were obtained through the chest, abdomen, and pelvis with 93 mL Isovue 370 at 2.7 mL/second, with sagittal and coronal reconstructions, 06/24/[address] of the chest of 02/02/19 and MRI abdomen dated 05/03/19. Total exam DLP = 1,060.06 mGy-cm. CT CHEST: Examination of the chest was obtained, 06/24/19, and compared with , as mentioned above, again revealing evidence of cholelithiasis with thickened wall; however, the gallbladder is not grossly enlarged on the current study. In the liver, there are multiple lesions, compatible with history of previous carcinoma. No mediastinal mass was identified. Mediastinal lymphadenopathy is mild and nonspecific. The heart did not appear enlarged. No pericardial effusion was seen. Pleural effusion present on the right on the previous examination has resolved. A small area of density is noted at the right lower lobe at the lung base - diaphragm, most likely fibrotic in nature. At this time, a definite active infiltrate or effusion was not identified. Emphysematous changes are slightly more prominent with a slightly larger number and slightly larger abnormal air spaces present. No definite metastatic disease process was identified in the lungs or pleural spaces or mediastinum. IMPRESSION: 1. No findings to strongly suggest metastatic disease identified in the lungs, pleural spaces, or mediastinum. 2. Minimal scarring of the pleural and parenchyma. CT ABDOMEN AND PELVIS: Examination of the abdomen and pelvis was obtained, , and compared as far as possible with MRI from 05/27/19. There are again noted lesions in the liver compatible with treated RCC in the superior posterior right lobe of the liver with a few other much smaller lesions noted. One small lesion noted in the posterior right lobe of the liver on coronal image #67 showed evidence of contrast-enhancement at its rim, suggesting an active lesion but should be correlated clinically. Overall, little change is suggested compared with the previous MRI in the appearance of the liver or, for that matter, the remainder of the abdomen and pelvis. Somewhat dilated transverse colon with air fluid level is again seen of questionable significance. It may be related to fluid intake or possibly even gastroenteritis or colitis. The wall of the colon may be slightly thickened. There is noted evidence of a previous anastomosis - postsurgical change in the ascending colon. There does appear to be some thickening of the wall of the distal jejunum proximal to the anastomosis with the ascending colon. An inflammatory process, possibly even a process such as Crohns disease, could be present - correlate clinically. Ischemia is felt to be less likely in this patient. A tiny low density lesion in the upper pole of the left kidney may represent a simple cyst. A tiny calculus is suggested in the lower pole calyx of the right kidney. Gallstones are again noted. The gallbladder was not enlarged, however, as it was on the previous examination. The abdominal aorta is normal in caliber. There are some minimal calcifications in the aorta and some calcifications in the iliac and femoral arteries. Urinary bladder is deflated due to presence of a Wang type catheter with balloon. The spleen and pancreas have a normal appearance. Retroperitoneal lymphadenopathy is noted of questionable significance. The appendix is not definitely visualized. No evidence of free air or definite mechanically obstructive process of the bowel was identified with some fluid and stool in the colon distally. The bony structures appear to be fairly intact with a minimal dextroconvex scoliosis suggested at the lumbar spine. IMPRESSION: 1. Overall fairly stable appearance compared with 05/30/19 MRI of the abdomen with liver lesions, minimal cystic change in the left kidney, probable calculus lower pole right kidney, and some thickening of the wall of the ascending colon and distal ileum, raising question of possible inflammatory bowel disease. No progressive metastatic disease process is identified. 2. Cholelithiasis but with no definite evidence of cholecystitis. A mild degree of chronic cholecystitis certainly cannot be excluded with the slightly thickened wall, however - correlate clinically. Report was called to Dr. Yobani Millan at 1808 hours on 06/24/19. [facility]
== END 2019-06-24 18:28 | disposition home or self-care (01) ==
LOC: FB.ED 14:37
DX: N39.0 Urinary tract infection, site not specified (principal); R33.9 Retention of urine, unspecified; J44.9 Chronic obstructive pulmonary disease, unspecified; F17.290 Nicotine dependence, other tobacco product, uncomplicated; Z85.05 Personal history of malignant neoplasm of liver
CPT/HCPCS: 36415; 36600; 51702; 71260; 74177; 80053; 81001; 82803; 83605; 85025; 85610; 86140; 87040; 87086; 87088; 94640; 96361; 96365; 96375; 99284; A9270; J0696; J2270; J2930; J7050; J7120; Q9967; 87186; J7620-GY